=== PATIENT | male | born 1955 | race Caucasian/White ===

== ENCOUNTER 2021-04-16 07:55 | Outpatient (CLI) | payer OTHER | END 2021-04-16 23:59 | disposition home or self-care (01) | LOC: CVU 07:55 → RAD 23:59 | PROVIDERS: ATTEND Internal Medicine | DX: R91.8 Other nonspecific abnormal finding of lung field (principal); J98.4 Other disorders of lung; I77.810 Thoracic aortic ectasia; J84.9 Interstitial pulmonary disease, unspecified | CPT/HCPCS: 71250; 93306 ==